=== PATIENT | female | born 1985 | race Caucasian/White ===

== ENCOUNTER 2020-01-02 08:32 | Emergency (ER) | payer BC ==
[2020-01-02] MEDS ORDERED: NORMAL SALINE 1000 ML 1,000 ML IV ONE (09:01)
[2020-01-02 09:10] LABS: ABSOLUTE EOSINOPHILS # (AUTO) 0.1 10^3/uL (0.0-0.6); ABSOLUTE LYMPHOCYTES (AUTO) 4.4 10^3/uL (0.5-4.7); ABSOLUTE MONOCYTES (AUTO) 0.5 10^3/uL (0.1-1.4); ABSOLUTE NEUT (AUTO) 3.2 10^3/uL (1.7-8.2); BASOPHILS % (AUTO) 0.6 % (0-2); EOSINOPHILS % (AUTO) 1.5 % (0-6); HEMATOCRIT 44.4 % (36.0-47.0); HEMOGLOBIN 15.1 g/dL (12.0-15.5); LYMPHOCYTES % (AUTO) 53.3 % (13-45); MEAN CORPUSCULAR HEMOGLOBIN 31.3 pg (27.0-33.4); MEAN CORPUSCULAR VOLUME 92 fl (80-97); MONOCYTES % (AUTO) 6.3 % (3-13); PLATELET COUNT 223 10^3/uL (150-450); RED BLOOD COUNT 4.83 10^6/uL (3.72-5.28); RED CELL DISTRIBUTION WIDTH 13.3 % (11.5-14.0); SEGMENTED NEUTROPHILS % (AUTO) 38.3 % (42-78); TOTAL CELLS COUNTED % (AUTO) 100 %; WHITE BLOOD COUNT 8.3 10^3/uL (4.0-10.5)
[2020-01-02 09:21] LABS: APPEARANCE,URINE SLIGHTLY-CLOUDY; BILIRUBIN,URINE NEGATIVE (NEGATIVE); COLOR,URINE YELLOW; GLUCOSE, URINE NEGATIVE (NEGATIVE); KETONES,URINE 20 mg/dL (NEGATIVE); LEUKOCYTE ESTERASE,URINE SMALL (NEGATIVE); NITRITE,URINE NEGATIVE (NEGATIVE); PROTEIN,URINE 30 mg/dL (NEGATIVE); URINE SPECIFIC GRAVITY 1.019; UROBILINOGEN,URINE NEGATIVE mg/dL (<2.0)
[2020-01-02 09:26] LABS: ALCOHOL 58 mg/dL (NONE DETECTED); ALKALINE PHOSPHATASE 55 U/L (38-126); ANION GAP 15 (5-19); ASPARTATE AMINO TRANSFERASE 27 U/L (14-36); BILIRUBIN,TOTAL 0.4 mg/dL (0.2-1.3); BLOOD UREA NITROGEN 12 mg/dL (7-20); CALCIUM 10.2 mg/dL (8.4-10.2); CARBON DIOXIDE 19 mmol/L (22-30); CHLORIDE 107 mmol/L (98-107); GLUCOSE 83 mg/dL (75-110); POTASSIUM 3.1 mmol/L (3.6-5.0); TOTAL PROTEIN 8.3 g/dL (6.3-8.2)
[2020-01-02 09:27] LABS: ACETAMINOPHEN < 10 ug/mL (10-30); SALICYLATE < 1.0 mg/dL (2.0-20.0)
[2020-01-02 09:32] LABS: URINE AMPHETAMINES SCREEN NEGATIVE; URINE BARBITURATES SCREEN NEGATIVE; URINE BENZODIAZEPINES SCREEN NEGATIVE; URINE COCAINE SCREEN NEGATIVE; URINE MARIJUANA (THC) SCREEN NEGATIVE; URINE METHADONE SCREEN NEGATIVE; URINE PHENCYCLIDINE SCREEN NEGATIVE
[2020-01-02] MEDS ORDERED: POTASSIUM CHLORIDE 10 MEQ TABLET.ER PO ONE (09:59)
--- NOTE | 2020-01-02 10:03 | ER Document Report ---
ED General - General TRAVEL OUTSIDE OF THE [place] IN LAST 30 DAYS: No - Related Data Home Medications: Losartan, HCTZ <PARVEEN ESTEVEZ - Last Filed: 01/02/20 15:32> <MARYCARMEN SIDDIQI - Last Filed: 01/03/20 12:15> <VIRAL GONZALEZ - Last Filed: 01/03/20 14:31> - General Chief Complaint: Possible Overdose Stated Complaint: POSSIBLE OVERDOSE Time Seen by Provider: 01/02/20 08:59 Primary Care Provider: [facility] [Provider Group] - Follow up as needed (Call first thing Sunday (01/05/2020) morning to schedule initital appointment.) [facility] [Outside] - Follow up as needed [facility] [Outside] - Follow up as needed EFRA FIGUEROA PA-C [Primary Care Provider] - Follow up as needed - [facility] Notes: Patient is a 34-year-old female who presents to the emergency department for e valuation after an intentional overdose of Benadryl. She admits to taking between 15 and 25 tablets of diphenhydramine at approximately 730 this morning. She states to me that she cannot tell me why she took them. She admits that she knew it could hurt her. She states she started having dark thoughts like this yesterday, acted on them this morning. She denies being suicidal at this time. She denies any homicidal ideation. She denies taking any other substances in an attempt to hurt herself. She does not see a counselor. She is never been diagnosed with depression or anxiety. She admits she has had thoughts like this in the past, but has not acted on them. She states her brain just "goes to a dark place." She denies any visual or auditory hallucinations. Otherwise she states her life has had no significant stressors or changes as of late. She is . She is reports this is happily. She states she likes her job, has 2 children, ages 16 and 5. She reports good relationships with family members. She states currently her mouth is dry, admits to feeling anxious. She states otherwise to be draining and drinking normally. Denies any other acute complaints or concerns. (PARVEEN ESTEVEZ) - Related Data Allergies/Adverse Reactions: No Known Allergies Allergy (Verified 03/06/14 10:36) Past Medical History - General Information source: Patient - Social History Smoking Status: Current Every Day Smoker Frequency of alcohol use: Binge drinks twice weekly Drug Abuse: None Family History: Hypertension, Thyroid Disfunction, Other - Anxiety Renal/ Medical History: Reports: Hx Kidney Stones <PARVEEN ESTEVEZ - Last Filed: 01/02/20 15:32> Review of Systems - Review of Systems Neurological/Psychological: See HPI -: Yes All other systems reviewed and negative <PARVEEN ESTEVEZ - Last Filed: 01/02/20 15:32> Physical Exam <PARVEEN ESTEVEZ - Last Filed: 01/02/20 15:32> - Vital signs Vitals: Pulse Resp BP Pulse Ox 173 H 26 H 147/89 H 100 01/02/20 08:39 01/02/20 08:39 01/02/20 08:39 01/02/20 08:39 - Notes Notes: This is a pleasant, anxious appearing 34-year-old female, who appears her stated age. She is in no acute distress, but is intermittently tearful, has difficulty maintaining eye contact with this examiner. (PARVEEN ESTEVEZ) Course - Laboratory Result Diagrams: 01/02/20 08:50 01/02/20 08:50 <PARVEEN ESTEVEZ - Last Filed: 01/02/20 15:32> - Laboratory Result Diagrams: 01/02/20 08:50 01/02/20 08:50 <MARYCARMEN SIDDIQI - Last Filed: 01/03/20 12:15> - Laboratory Result Diagrams: 01/02/20 08:50 01/03/20 12:45 <VIRAL GONZALEZ - Last Filed: 01/03/20 14:31> - Re-evaluation Re-evalutation: 01/02/20 10:20 Patient presents to the emergency department for evaluation after diphenhydramine overdose. She is placed on telemetry monitor. Laboratory investigations were obtained. Her initial EKG was fast, showed some potential rate related ischemic changes. She has no old studies available for comparison. She is given IV fluids. Laboratory investigations revealed hypokalemia, this was replaced. I did order magnesium and IV fluids. If further showed a blood alcohol level that was positive, although under the legal limit. Patient admits that she drinks 4-6 "white claws" twice a week. She states her last drink was at 11 or 12:00 last night. She does admit that she binge drinks when she has alcohol. We talked about this being an issue, and she recognizes this is a concern. Currently, still awaiting her further testing. She is stable, her heart rate is improved to 101. Her blood pressure remains normal, her neurological exam is unremarkable. We will continue to monitor. 01/02/20 14:48 Patient's laboratory investigations revealed a hypokalemia, alcohol, but no other significant abnormality. Repeat salicylate and acetaminophen levels were negative. Repeat EKG showed an improved heart rate and improved ST segments. I do have concerns that this patient is much more significantly depressed than she is admitting. She alludes to "being overcome with dark thoughts" and did take this Benadryl knowing that it could potentially be fatal. I do believe she is a potential danger to herself, and the patient will stay under 24-hour hold for further evaluation. Currently she is medically cleared. (PARVEEN ESTEVEZ) - Vital Signs Vital signs: Temp Pulse Resp BP Pulse Ox 98.1 F 80 18 135/76 H 99 01/03/20 06:40 01/03/20 06:40 01/03/20 06:40 01/03/20 06:40 01/03/20 06:40 - Laboratory Laboratory results interpreted by me: 01/02/20 01/02/20 01/02/20 08:50 08:50 08:54 Lymph % (Auto) 53.3 H Seg Neutrophils % 38.3 L Potassium 3.1 L Carbon Dioxide 19 L Total Protein 8.3 H Urine Protein 30 H Urine Ketones 20 H Ur Leukocyte Esterase SMALL H Salicylates < 1.0 L Acetaminophen < 10 L 01/02/20 12:38 Lymph % (Auto) Seg Neutrophils % Potassium Carbon Dioxide Total Protein Urine Protein Urine Ketones Ur Leukocyte Esterase Salicylates < 1.0 L Acetaminophen < 10 L - EKG Interpretation by Me Additional EKG results interpreted by me: 01/02/20 10:21 Sinus tachycardia with rate of 134 bpm. Normal axis and intervals. Diffuse ST depression, particularly anterior and inferior leads, likely rate related ischemia. No old studies available for comparison. 01/02/20 14:49 Repeat EKG showed a sinus tachycardia with rate of 102 bpm. Normal axis and intervals. Nonspecific ST changes, but no acute changes concerning for ischemia or infarction. (SHASHIMAGALYPARVEEN) Discharge <PARVEEN ESTEVEZ - Last Filed: 01/02/20 15:32> <MARYCARMEN SIDDIQI - Last Filed: 01/03/20 12:15> <GONZALEZEDGARN - Last Filed: 01/03/20 14:31> - Discharge Clinical Impression: Hypokalemia, Intentional diphenhydramine overdose, Alcohol abuse, Depression Condition: Stable Disposition: HOME, SELF-CARE Additional Instructions: You have been evaluated by both medical and behavioral health teams for intentional overdose of diphenhydramine and increased depression. You have been deemed appropriate for discharge. While in the emergency department you received the following services/or had access to: Medical screening and assessment, nursing services, dietary services, pharmacological services, one-on-one counseling and/or psychotherapy, environmental services, and continuous observation by a patient safety administrator. Alcohol is a depressant so often increases depression. It also inhibits insight, judgment and impulse control. DEPRESSION: Your evaluation reveals that you have mental depression. While symptoms may be vague, they often include disturbance of sleep, fatigue, loss of appetite, and general loss of interest in life. While depression may be a side effect of drugs, or a reaction to a major change in your life, many cases have no known cause. If depression is acute, and related to a major loss in your life, you can expect it to clear completely with time. If you have been depressed a long time, are prone to repeated bouts of depression or low mood, or have been thinking of suicide, get help. Depression can be treated with anti-depressant medication and counselling. Long-term depression will often take a few weeks to clear, even with appropriate medication. Follow-up care is important. SUICIDAL IDEATION: Suicidal ideation is a common medical term for thoughts about suicide, which may be as detailed as a formulated plan, without the suicidal act itself. Although most people who undergo suicidal ideation do not commit suicide, some go on to make suicide attempts. The range of suicidal ideation varies greatly from fleeting to detailed planning, role playing, and unsuccessful attempts. While thoughts about suicide are common, most people do not carry out serious actions to commit suicide. Based upon your evaluation and discussion with you, we do not believe you are currently at risk to act upon your thoughts of suicide. You have agreed to return to the Emergency Department, at any time, if you feel inclined to act upon your suicidal thoughts. ACUTE ALCOHOL INTOXICATION and ALCOHOL ABUSE: Your evaluation revealed levels of alcohol. You can from drinking a large amount of alcohol rapidly! Further, there's the risk of falls, traffic accidents, and fights. A high portion (about 50 percent) of the serious injuries seen in hospital emergency rooms are caused by alcohol. Alcohol overdosage is usually due to an underlying emotional or psychiatric problem. You may benefit from counselling. If "binge" drinking is an ongoing problem for you, or if you drink ANY AMOUNT of alcohol EVERY day, you most likely have a tendency to alcoholism. You should avoid alcohol totally. We can refer you for treatment. Persons with alcohol problems are often also prone to other addictions -- you should discuss any use of medications or drugs with the doctor. You should be watched at home for the next several hours by someone who has not been drinking. Get extra fluids for the next 24 hours. Call the doctor if there is repeated vomiting, increasing headache, decreasing level of alertness, or any other worsening. FOLLOW-UP CARE: You have been provided outpatient resource information for [facility]. You are encouraged to call them first thing Sunday morning to schedule initial Intake and be linked to individual therapy. Therapy is a good starting point for behavioral health treatment. You have also been provided both mobile crisis numbers for crisis/talk therapy/linkage to other services and supports. Your and mother will be in control of medications and administration. If you experience worsening or a significant change in your symptoms notify your physician immediately, utilize mobile crisis or return to the Emergency Department at any time for re-evaluation. Referrals: EFRA FIGUEROA PA-C [Primary Care Provider] - Follow up as needed [facility] [Outside] - Follow up as needed [facility] [Outside] - Follow up as needed [facility] [Provider Group] - Follow up as needed (Call first thing Sunday (01/05/2020) morning to schedule initital appointment.)
--- NOTE | 2020-01-02 12:30 | PSYCHOLOGICAL NOTE ---
Psych Note - Psych Note Date seen by psych provider: 01/02/20 Time seen by psych provider: 10:55 Psych Note: Reason for consult: Intentional overdose Patient discloses that she took too many Benadryl. When asked why she reports that she has been feeling sad for an unknown reason and states "honestly I do not know why I did it, I do not want to ... It started yesterday were out of nowhere became very sad and been crying uncontrollably. It is frustrating because I do not understand why. Yet others normal stresses but nothing out of the normal, nothing new has happened or stressing me out." Patient confirms she was drinking last night however states that she only drinks about once a week twice at the most and usually drinks with her . She reports that last night was normal she was fine drank some wine and went to bed. She reports that she woke up like normal for work with no issues denies any nightmares or any difficulty sleeping. She reports that upon awaking she became overwhelmed with sadness and started to cry uncontrollably at which point is when she took the overdose. Patient's mother spoke with clinician outside of patient's room. She confirms she believes the patient was not suicidal and does not want to . She reports that she feels this was impulsive. She denies having any knowledge of increased stressors for the patient. She reports there is a strong family history of thyroid issues through the maternal side. She agrees to be part of patient's plan of care. Patient is alert and orientated to person, place, time and circumstance. Mood is overall euthymic with congruent affect until speaking of her frustration and not understanding her uncontrollable emotions and impulsive act at which point patient became tearful. Patient denies suicidal and homicidal ideation admits to intentional overdose. Delusions are absent behaviors congruent with an intact reality based presentation i.e. or used linear thought process. Eye contact was well maintained. Conversational speech is within normal rate, tone and prosody. Intellectual abilities appear to be within the average range. Attention and concentration are good. Insight, judgment, impulse control is fair. Clinical presentation Intentional overdose Reported acute onset of uncontrolled and overwhelming sadness Impression\\plan: Patient reports impulsive act after an overwhelming uncontrolled feeling of sadness, hopelessness and helplessness overcame her. Patient discloses frustration in connection with this acute onset of emotions as she reports there is no triggering event/reason. Patient clearly articulates she does not want to and took steps immediately after taking the medication to receive help. Patient's mother brought the patient in to the hospital and confirms patient's report. Patient has no history of mental health, new reported onset of stressors etc. Patient's mother agrees to be part of patient's plan of care i.e. no access to medications and weapons and follow through with mental health recommendations. Patient is recommended to obtain therapeutic services and has been provided local resource list of area providers including mobile crisis contact information. Clinician notes patient's mother reports a strong family history of thyroid issues that has resulted in mood swings. Thyroid hormone instability has been known to cause difficulty with mood swings. Clinician discussed case with attending provider. Patient reportedly provided different information to attending provider which includes a long history of depressive bouts and reporting that she knew the amount of medication she would take would kill her. It is also noted the patient reports she stopped drinking at 11 PM last night after drinking a few white claw alcoholic beverages. Patient presented to [facility] ED with an EtOH of 58. Patient is recommended for 24-hour petition for evaluation. Patient is currently not medically cleared and mental health evaluation is ongoing. There is concern the patient provided different information to medical provider than she did to psychiatric provider. Dr. King was consulted to care management of this patient; tending physician is agreement with recommendations and disposition
[2020-01-02 13:28] LABS: ACETAMINOPHEN < 10 ug/mL (10-30); SALICYLATE < 1.0 mg/dL (2.0-20.0)
--- NOTE | 2020-01-02 23:02 | EKG REPORT ---
SEVERITY:- ABNORMAL ECG - SINUS TACHYCARDIA CONSIDER LEFT VENTRICULAR HYPERTROPHY BORDERLINE T ABNORMALITIES, INFERIOR LEADS : Confirmed by: Naya Arevalo MD 02-Jan-2020 23:01:04
--- NOTE | 2020-01-02 23:02 | EKG REPORT ---
SEVERITY:- ABNORMAL ECG - SINUS TACHYCARDIA PROBABLE LVH WITH SECONDARY REPOL ABNRM ST DEPRESSION, CONSIDER ISCHEMIA, DIFFUSE LDS : Confirmed by: Naya Arevalo MD 02-Jan-2020 23:01:11
[2020-01-03 13:12] LABS: ALBUMIN 4.6 g/dL (3.5-5.0); ALKALINE PHOSPHATASE 52 U/L (38-126); ANION GAP 7 (5-19); ASPARTATE AMINO TRANSFERASE 23 U/L (14-36); BILIRUBIN,TOTAL 0.7 mg/dL (0.2-1.3); BLOOD UREA NITROGEN 15 mg/dL (7-20); CALCIUM 9.5 mg/dL (8.4-10.2); CARBON DIOXIDE 25 mmol/L (22-30); CHLORIDE 106 mmol/L (98-107); GLUCOSE 94 mg/dL (75-110); TOTAL PROTEIN 7.9 g/dL (6.3-8.2)
--- NOTE | 2020-01-03 13:37 | ER Document Report ---
Doctor's Note Notes: 01/03/20 13:24 Patient's vital signs are previous labs, diagnostic imaging reviewed. Reviewed mental health notes, nurses notes and previous vital signs. Patient is in no distress at this time denies any SI or HI. No hallucinations. Denies any complaints at this time. Has been cleared by mental [facility]. Her repeat potassium is 4.0. General: alert, oriented Heart: regular, rate, rhythm, no murmurs rubs or gallops Lungs: CTABL Psych: normal affect A&P: Patient has been cleared by mental health. She denies any acute concerns and her labs are unremarkable at this time. She is medically cleared. I will discharge patient.
[2020-01-03 13:53] VITALS: BP 130/75
--- NOTE | 2020-01-03 19:04 | PSYCHOLOGICAL NOTE ---
Psych Note - Psych Note Date seen by psych provider: 01/03/20 Time seen by psych provider: 11:19 - Evaluation with patient and mother present from [id number]. Psych Note: Patient is a 34 year old female who presented to the Emergency Department early yesterday morning via privately owned vehicle for intentional overdose of Diphenhydramine and alcohol intoxication (Serum Alcohol Level was 53). Her story varied between the medical and behavioral health providers. She was subsequently held overnight and put on a 24 Hour Petition for Evaluation. There was concern for thyroid levels given reported family history. Patient's TSH was 1.3 (within normal range). Patient denied current suicidal ideation and commented "it is the absolute last thing on my mind, I feel bad for putting my family through this, I just want to see my family." She identified she had never done anything to harm.hurt/kill self before. She identified she "was emotional the day before she came to Emergency Department, she had a few drinks (she admitted she provided low amount when initially asked) by 1100 the night before she came in, her and her went to bed at their normal time, the kids were not home (step daughter was at a friend's, son was at grandparents)." Patient stated the next morning things were okay, her left for work, they did not fight and he kissed her good bye." She further stated "I just laid in bed and thought I don't want to get up ever again." She stated if the children would have been home that would have been enough to deter her. Patient admitted to depressive episodes after her son was born and another time. She denied any previous mental health treatment (outpatient: medication or therapy, and denied inpatient hospitalization). She stated "Sunday I need to call and get an appointment for therapy." She noted she wanted to avoid medication if possible. She mentioned being prescribed a blood pressure medication and nothing else. Patient stated "I talked to my mother and , there were signs of depression, like I wanted to sleep all the time and had no interest in things." Patient was alert and oriented to self, person, place, time and situation. Mood was euthymic with congruent affect. She denied current suicidal and homicidal ideation. She noted she felt bad for putting her family through that and just wanted to see them. Patient did not appear to be responding to internal stimuli as evidenced by fair eye contact and answering questions appropriately when addressed. Thought processes were linear and organized. Conversational speech was within normal limits for rate, tone and prosody. Intellectual abilities are estimated to be average. Insight, judgment and impulse control were fair as evidenced by being engaged and processing/discussing crisis event. Patient's mother was at bedside side. She stated "she was not suicidal and regretted what she did minutes after doing it." Note that both mother and have been visiting and thus seem to be good natural supports. Clinical Presentation: Intentional Overdose Increased Depression Impression/Plan: Patient is cleared from acute psychiatric services. Recommendation to RESCIND 24 Hour Petition for Evaluation. She denied current suicidal and homicidal ideation, denied previous attempts at hurting/harming/killing self, was able to identify depressive symptoms (wanting to sleep all the time, no interest in things), she had been drinking alcohol which is a depressant (psychoeducated patient which she was already aware), stated she felt bad for putting her family through this and just wants to see them all, and she was able to discuss/process the crisis. She was interested in and agreed to therapy. Informed patient and mother another adult (mother or ) needs to be in control of patient's medications/other people in the home's medication/over the counter medication and administer her only what she needs for the day. They agreed to do so. Provided patient with the outpatient mental health resource sheet which highlighted both mobile crisis numbers for crisis/talk therapy/linkage, as well as highlighted [facility] (also included pamphlet for the agency) and documented to call first thing Sunday (01/05/2020) to schedule appointment. Also provided the [facility] Behavioral Health team phone number ([phone]) in the event she has difficulty scheduling appointment with [facility]. Consulted with Dr. King regarding the management and care of patient. ED Physician in agreement with recommendations.
== END 2020-01-03 13:52 | disposition home or self-care (01) ==
LOC: ER 08:32
DX: T45.0X2A Poisoning by antiallergic and antiemetic drugs, intentional self-harm, initial encounter (principal); Y92.009 Unspecified place in unspecified non-institutional (private) residence as the place of occurrence of the external cause; E87.6 Hypokalemia; F32.9 Major depressive disorder, single episode, unspecified; R68.2 Dry mouth, unspecified; R00.0 Tachycardia, unspecified; F10.129 Alcohol abuse with intoxication, unspecified; Y90.2 Blood alcohol level of 40-59 mg/100 ml; F17.200 Nicotine dependence, unspecified, uncomplicated; Z83.49 Family history of other endocrine, nutritional and metabolic diseases
CPT/HCPCS: 93005; 99285; 96360; 36415; 80307 ×4; 83735; 84443; 85025; 81025; 80053; 81001; 84484; 93010; J7030